=== PATIENT | female | born 1935 | race African-American/Black ===

== ENCOUNTER → 2016-05-14 | Day surgery (SDC) | payer MEDICARE ==
[~2016-05-14] VITALS: Ht 160 cm; Wt 67.1 kg
[2016-05-14] VITALS (9 sets, daily range): BP systolic 135–193; BP diastolic 53–96
[~2016-05-14] MED LIST: Acetylcholine Injection (OR) ONE; Akten 3.5% 1ml Btl ONE; BENICAR HCT 201 EACH ORAL; BSS 15ml BTL ONE; BSS 500ml btl ONE; Bupivacaine 0.75% 30ml vial INJ ONE; Carbachol 0.01% Op Soln 1.5ml vial ONE; Ciprofloxacin Opth Soln ONE; Cyclopentolate 1% Opth Sol ONE; Dexamethasone 4mg/ml vial ONE; DiphenhydrAMINE 50mg/ml Inj IVP PRN; EPINEPHrine 1mg/1ml Amp ONE; Fluorescein Strips ONE; Flurbiprofen 0.03% Opth Sol 2.5ml ONE; Gatifloxacin Opth Solution 0.5% ONE; LR 1000ml 1,000 ML IVLG SCH; LR 1000ml ONE; Labetalol 5mg/ml 20ml vial IV ONE; Labetalol 5mg/ml 20ml vial IV PRN; Lidocaine 1% MPF 10mg/ml 5ml ONE; Lidocaine 4% Amp ONE; METFORMIN HCL500 M1 ORAL; METOPROLOL SUCC50 MG ORAL; Maxitrol Opth Oint 3.5gm ONE; NS Irrig 1000ml ONE; PROPRANOLOL HCL20 MG ORAL; Phenylephrine 10% Opth Soln 5ml ONE; Povidone-Iodine 5% opth solution ONE; Pred Forte 1% Opth Susp 1ml LEFT EYE ONE; Pred Forte 1% Opth Susp 1ml ONE; Sodium Hyaluronate 10 mg/ml 0.85ml ONE; Sterile Water Irrig 1000ml IRRIG ONE; Tetracaine 0.5% Opth Soln ONE; Timolol 0.5% Op Soln 2.5ml ONE; fentaNYL 100 mcg/2 mL IV ONE
--- NOTE | 2016-05-14 10:28 | Pre-Procedure Note/Attestation ---
Pre-Procedure Note/Attestation Complete Prior to Procedure Planned Procedure: left - Removal of cataract and placement of intraocular lens , left eye Procedure Narrative: removal of cataract and placement of intraocular lens, left eye Indications for Procedure Pre-Operative Diagnosis: cataract, nuclear, left eye Attestation I attest that I discussed the nature of the procedure; its benefits; risks and complications; and alternatives (and the risks and benefits of such alternatives ), prior to the procedure, with the patient (or the patient's legal claim service representative). I attest that, if there was a reasonable possibility of needing a blood transfusion, the patient (or the patient's legal claim service representative) was given the [place] [employer] [facility] standardized written summary, pursuant to the [place] Blood Safety Act ([place] Health and Safety Code # 1645, as amended). I attest that I re-evaluated the patient just prior to the surgery and that there has been no change in the patient's H&P, except as documented below: Jeremiah Moreau MD May 14, 2016 10:28
[2016-05-14] MEDS: Phenylephrine 10% Opth Soln 5ml LEFT EYE SCH ×3 (10:45→11:15)
[2016-05-14] MEDS: Flurbiprofen 0.03% Opth Sol 2.5ml LEFT EYE SCH ×3 (10:45→11:15)
[2016-05-14] MEDS: Akten 3.5% 1ml Btl LEFT EYE SCH ×3 (10:46→11:15)
[2016-05-14] MEDS: Gatifloxacin Opth Solution 0.5% LEFT EYE SCH ×3 (10:46→11:16)
[2016-05-14] MEDS: Cyclopentolate 1% Opth Sol LEFT EYE SCH ×3 (10:46→11:15)
--- NOTE | 2016-05-14 11:53 | Anethesia Preoperative Eval ---
Anesthesia Pre-op PMH/ROS General Date of Evaluation: May 14, 2016 Anesthesiologist: Declan ASA Score: ASA 2 Mallampati Score Class I : Soft palate, uvula, fauces, pillars visible Class II: Soft palate, uvula, fauces visible Class III: Soft palate, base of uvula visible Class IV: Only hard plate visible Mallampati Classification: Class II Surgeon: Prieto Diagnosis: Left cataract Surgical Procedure: Left cataract extraction with IOL Anesthesia History: none Family History: no anesthesia problems Allergies: Coded Allergies: No Known Allergies (Unverified , 05/14/16) Medications: see eMAR Past Medical History Cardiovascular: Reports: HTN - uncontrolled, Denies: CAD, [place], arrhythmia, other, valve dz Pulmonary: Denies: COPD, KARLA, asthma, other Gastrointestinal/Genitourinary: Denies: CRI, ESRD, GERD, other Neurologic/Psychiatric: Denies: CVA, TIA, dementia, depression/anxiety, other Endocrine: Reports: DM, Denies: hypothyroidism, other, steroids HEENT: Denies: THREE AFFILIATED (L), THREE AFFILIATED (R), cataract (L), cataract (R), glaucoma, other Hematology/Immune: Denies: DVT, anemia, bleeding disorder, other Musculoskeletal/Integumentary: Denies: DDD, DJD, OA, RA, edema, other PSxH Narrative: breast lumpectomy Anesthesia Pre-op Phys. Exam Physician Exam Last Vital Signs Date Time Temp Pulse Resp B/P Pulse Ox O2 Delivery O2 Flow Rate FiO2 05/14/16 11:03 98.6 62 18 193/80 96 Room Air Constitutional: NAD Cardiovascular: RRR Respiratory: CTA Airway Exam Mallampati Score: Class II Anesthesia Pre-op A/P Labs see chart Studies Pre-op Studies: EKG - sr Risk Assessment & Plan Assessment: ASa II Plan: MAC Status Change Before Surgery: No Pre-Antibiotics Drug: N/A ARANZA INGRAM M.D. May 14, 2016 11:53
--- NOTE | 2016-05-14 11:54 | Immediate Post-Op Evaluation ---
Immediate Post-Op Evalulation Immediate Post-Op Evalulation Procedure: Left cataract extraction with IOL Date of Evaluation: May 14, 2016 Time of Evaluation: 13:09 IV Fluids: 300 Blood Products: 0 Estimated Blood Loss: 0 Urinary Output: 0 Blood Pressure Systolic: 165 Blood Pressure Diastolic: 71 Pulse Rate: 62 Respiratory Rate: 16 O2 Sat by Pulse Oximetry: 95 Temperature (Fahrenheit): 98.4 Pain Score (1-10): 0 Nausea: No Vomiting: No Complications 0 Patient Status: awake, reacts, patent, none Hydration Status: adequate Drug: N/A ARANZA INGRAM M.D. May 14, 2016 11:54
--- NOTE | 2016-05-14 11:54 | 48 Hour Post Anesthesia Eval ---
Post Anesthesia Evaluation Procedure: Left cataract extraction with IOL Date of Evaluation: May 14, 2016 Blood Pressure Systolic: 161 0: 70 Pulse Rate: 63 Respiratory Rate: 16 O2 Sat by Pulse Oximetry: 96 Airway: patent Nausea: No Vomiting: No Pain Intensity: 0 Hydration Status: adequate Cardiopulmonary Status: at baseline Mental Status/LOC: patient returned to baseline Post-Anesthesia Complications: 0 Follow-up care needed: ready to discharge ARANZA INGRAM M.D. May 14, 2016 11:54
--- NOTE | 2016-05-14 13:06 | Discharge Instructions ---
Discharge Instructions Discharge Instructions Follow Up Orders Keep eye shield on at all times except to place eye drops Continue preop eye drops followup tomorrow in Dr Moreau's office For Congestive Heart Failure Reminder Report to your physician any weight gain of 5 pounds or more in one week. Jeremiah Moreau MD May 14, 2016 13:06
--- NOTE | 2016-05-16 06:40 | Brief Operative Note ---
Immediate Post Operative Note Operative Note Pre-op Diagnosis: cataract, nuclear, left eye Procedure: phaco pc iol, OS Post-op Diagnosis: same as pre-op Surgeon: Nancy Moreau MD Shoe Cobbler: none Anesthesiologist: Dr Grace Anesthesia: local, MAC Specimen: none Complications: none Condition: stable Estimated Blood Loss: minimal Implant(s) used?: Yes - robbi sn60wf 16.5 Jeremiah Moreau MD May 16, 2016 06:40
--- NOTE | 2016-05-17 19:19 | Operative Note - Dictated ---
DATE OF OPERATION: 05/14/2016 SURGEON: Jeremiah Moreau M.D. EXTRACTION SUPERVISOR SURGEON: None. ANESTHESIOLOGIST: Dr. Grace. ANESTHESIA: Local/standby/monitored anesthesia care. PREOPERATIVE DIAGNOSES: 1. Cataract, nuclear, left eye. 2. Anterior subcapsular cataract in the left eye. POSTOPERATIVE DIAGNOSES: 1. Cataract, nuclear, left eye. 2. Anterior subcapsular cataract in the left eye. PROCEDURES: 1. Phacoemulsification of cataract, left eye. 2. Placement of posterior chamber intraocular lens, left eye (model [id number], power 16.5). SPECIMENS: None. COMPLICATIONS: None. INDICATIONS FOR SURGERY: The patient has had painless progressive decrease in visual acuity in the left eye secondary to cataract. The patient understands the risks of surgery including infection, bleeding, need for further surgery, loss of vision, no improvement in vision, loss of the eye, loss of life, glaucoma, retinal detachment, and understands these risks and elects to proceed with surgery. FINDINGS: The patient had a +3 nuclear sclerotic cataract as well as a +2 anterior subcapsular cataract. Operative Note: After informed consent was obtained, the patient was brought into the operating room and placed in supine position. Cardiac and respiratory monitors were attached. A time-out was performed and all criteria were met and everyone in the room agreed. The left eye was then draped and prepped in sterile manner for ocular surgery. A lid speculum was placed in the eye. A 1% lidocaine preservative-free was injected at the approximate 2 o'clock limbus. A conjunctival peritomy was made from approximately 1:30 to 2:30 and dissected posteriorly. Hemostasis was maintained with bipolar cautery. A 2.6 mm limbal incision was made centered at approximately 2 o'clock and dissected anteriorly. A paracentesis was made at approximately 5:30 and 1% lidocaine preservative-free was injected into the anterior chamber followed by Healon. The anterior chamber was then entered using a 2.8 mm keratome through the limbal incision. An anterior capsulorrhexis was then performed. Hydrodissection and hydrodelineation of the lens was then performed. The lens was then phacoemulsified using divide and conquer four-quadrant technique. Residual cortical material was then aspirated. Healon was injected into the anterior chamber and capsular bag. The lens was taken from its package, placed into the cartridge, and the tip of the cartridge was placed through the limbal incision and the lens was injected into the capsular bag and centered nicely with a Sinskey hook. Healon was aspirated from the anterior chamber and capsular bag. The lens was noted to be totally in the capsule. After all the Healon was aspirated from the anterior chamber and capsular bag, one 10-0 nylon interrupted suture was then placed through the limbal incision and the knot was rotated and buried. Care was taken during the entire procedure not to touch the endothelium. The wounds were checked and found to be watertight. The conjunctiva was then closed with forceps cautery. The lid speculum and drapes were removed from the eye and a drop of Betadine was placed onto the surface of the eye and then irrigated. Drops of Pred Forte and gatifloxacin were applied to the eye followed by Maxitrol ointment and a shield. The patient tolerated the procedure well and left the operating room awake, alert, in stable condition. Jeremiah Moreau M.D. DR: KRISTIE JOB#: [id number] CC:
== END | disposition home or self-care (01) ==
LOC: SUR 10:08
DX: H25.12 Age-related nuclear cataract, left eye (principal); H25.032 Anterior subcapsular polar age-related cataract, left eye; E11.9 Type 2 diabetes mellitus without complications; I10 Essential (primary) hypertension; E05.90 Thyrotoxicosis, unspecified without thyrotoxic crisis or storm
CPT/HCPCS: 66984; 82962; J0171; J0360; J1100; J2405; J3010; J7120; V2632; 94003; 94150